=== PATIENT | female | born 1960 | race Caucasian/White ===

== ENCOUNTER → 2016-09-02 | Outpatient (CLI) | payer MEDICARE, OTHER ==
[~2016-09-02] MED LIST: BUPROPION XL150 MG PO; COREG PO; EPIPEN JR0.15 MG/01; FLUOXETINE HCL40 M1 PO; HYDROCHLOROTHIA25 MG PO; NEXIUM 24HR22.3 MG; PREMARIN
--- NOTE | ~2016-09-02 | CT4 ---
[facility] A Service [facility] RADIOLOGY TEXT RESULTS PATIENT: CORINA JOHN LOCATION: [facility] : 56 UNIT #: [id number] AGE: [address]: Brigida Lundberg APRN SEX: F ORDER DR: [id number] [place] [id number] MR#: [id number] Acc #: [id number] NAME: CORINA JHON : 1960 SEX: F STUDY DATE/TIME: 09/02/2016 13:00 UNIT: [facility] ROOM: STUDY DESCRIPTION: CT Abd and Pelv Wo Cont Attending Physician: Brigida Lundberg A.P.R.N. Referring Physician: Brigida Lundberg A.P.R.N. Ordering Physician: Brigida Lundberg A.P.R.N. Primary Care Physician: Brigida Lundberg A.P.R.N. MEDICAL IMAGING REPORT This report is preliminary unless electronic signature is present. EXAM CT abdomen and pelvis, without contrast. HISTORY Bilateral flank pain since yesterday. TECHNIQUE Unenhanced CT of the abdomen and pelvis. This CT exam was performed with one or more of the following radiation dose reduction techniques: automatic exposure control, adjustment of mA and/or kV according to patient size, and iterative reconstruction. COMPARISON None FINDINGS The included lung bases are clear. The liver, spleen, kidneys, adrenal glands, pancreas have an unremarkable unenhanced appearance. Previous cholecystectomy. The bowel loops are nondilated. There is moderate colonic stool burden. No radiodense urinary system calculus. PELVIS WITHOUT CONTRAST: No radiodense bladder calculus. Previous hysterectomy. No pelvic mass. No aggressive-appearing bone lesion. IMPRESSION 1. No acute findings. Specifically, no radiodense urinary system calculus or hydronephrosis. 2. Moderate colonic stool burden. [facility] A Service of [facility] RADIOLOGY TEXT RESULTS PATIENT: CORINA JOHN LOCATION: [facility] : 56 UNIT #: [id number] AGE: [address]: Brigida Lundberg APRN SEX: F ORDER DR: Dictated by... Miles Galaviz M.D. THIS IS AN ELECTRONICALLY VERIFIED REPORT Miles Galaviz M.D. at 09/02/2016 5:05 PM TORI/hsahla TD: 09/02/2016 15:51 JOB #: [id number] MEDICAL IMAGING REPORT Page 1 of 1
== END | disposition home or self-care (01) ==
LOC: SCT 12:30
DX: R30.9 Painful micturition, unspecified (principal); R10.9 Unspecified abdominal pain
CPT/HCPCS: 74176

== ENCOUNTER 2016-11-23 11:38 | Emergency (ER) | payer MEDICARE, OTHER ==
[2016-11-23] MEDS ORDERED: PREMARIN (11:49)
[2016-11-23] MEDS ORDERED: FLUOXETINE HCL40 M1 PO (11:49)
[2016-11-23] MEDS ORDERED: HYDROCHLOROTHIA25 MG PO (11:50)
[2016-11-23] MEDS ORDERED: BUPROPION XL150 MG PO (11:50)
[2016-11-23] MEDS ORDERED: EPIPEN JR0.15 MG/01 (11:50)
[2016-11-23] MEDS ORDERED: NEXIUM 24HR22.3 MG (11:50)
[2016-11-23] MEDS ORDERED: COREG PO (11:51)
[2016-11-23 12:39] LABS: URINE SOURCE CLEAN CATCH
[2016-11-23 12:43] LABS: URINE APPEARANCE CLEAR; URINE BILIRUBIN NEG (NEG); URINE BLOOD NEG (NEG); URINE COLOR YELLOW; URINE GLUCOSE NEG (NORM); URINE KETONE NEG (NEG); URINE LEUKOCYTE ESTERASE NEG (NEG); URINE NITRATE NEG (NEG); URINE PH 5.5 (5-8); URINE PROTEIN NEG (NEG); URINE SPECIFIC GRAVITY 1.015 (1.003-1.035); URINE UROBILINOGEN 0.2 MG/DL (NORM)
[2016-11-23 12:44] LABS: MICRO INDICATED? NO
[2016-11-23 12:46] LABS: BASOPHIL# 0.1 X10e3 (0-0.3); BASOPHIL% 1.1 % (0-2.5); EOSINOPHIL# 0.3 X10e3 (0-0.7); EOSINOPHIL% 3.8 % (0.0-7.0); HEMATOCRIT 52.2 % (35.0-45.0); HEMOGLOBIN 17.8 gm/dL (12.0-16.0); LYMPHOCYTE# 1.3 X10e3 (1.0-3.5); LYMPHOCYTE% 18.4 % (17.0-45.0); MEAN CELL VOLUME 88.8 FL (83-96); MEAN CORPUSCULAR HEMOGLOBIN 30.3 PG (28-34); MEAN CORPUSCULAR HGB CONC 34.2 g/dL (30-36); MEAN PLATELET VOLUME 8.4 FL (6.5-11.5); MONOCYTE# 0.8 X10e3 (0-1.0); MONOCYTE% 10.6 % (3.0-12.0); NEUTROPHIL# 4.7 X10e3 (1.5-7.1); NEUTROPHIL% 66.1 % (40-75); PLATELET COUNT 274 X10e3 (140-420); RED BLOOD COUNT 5.87 X10e (3.90-5.30); RED CELL DISTRIBUTION WIDTH 13.4 % (11.0-15.5); WHITE BLOOD COUNT 7.2 X10e3 (4.0-10.5)
[2016-11-23 12:48] LABS: DIFF IND NO
[2016-11-23 12:52] LABS: AMPHETAMINE NEG (NEG); BARBITURATES NEG (NEG); BENZODIAZEPINES NEG (NEG); COCAINE NEG (NEG); MARIJUANA NEG (NEG); OPIATES NEG (NEG); TRICYCLIC ANTIDEPRESSANTS NEG (NEG); U METHADONE NEG (NEG)
[2016-11-23 13:02] LABS: ALBUMIN SERUM 5.4 g/dL (3.5-5.0); ALKALINE PHOSPHATASE 67 U/L (32-92); ALT (SGPT) 22 U/L (10-40); AMYLASE 22 U/L (0-46); AST (SGOT) 21 U/L (10-42); BILIRUBIN,TOTAL 0.6 mg/dL (0.2-2.0); BLOOD UREA NITROGEN 15 mg/dL (9-23); CALCIUM SERUM 10.2 mg/dL (8.4-10.2); CARBON DIOXIDE 29 mmol/L (22-31); CHLORIDE 98 mmol/L (100-111); GLOM FILT RATE Estimated 62.1 mL/min (>60); GLUCOSE FASTING 81 mg/dL (70-110); LIPASE 23 U/L (22-51); POTASSIUM 3.6 mmol/L (3.5-5.1); PROTEIN TOTAL SERUM 9.4 g/dL (6.0-8.3); SODIUM 137 mmol/L (135-145)
[2016-11-23 13:09] LABS: BILIRUBIN, DIRECT <0.1 mg/dL (0.0-0.2); BILIRUBIN,INDIRECT 0.5 mg/dL (0.0-0.9)
== END 2016-11-23 13:26 | disposition home or self-care (01) ==
LOC: SED 11:38
PROVIDERS: Emergency Medicine
DX: R10.84 Generalized abdominal pain (principal); Z90.710 Acquired absence of both cervix and uterus; Z90.49 Acquired absence of other specified parts of digestive tract; Z79.899 Other long term (current) drug therapy
CPT/HCPCS: 36415; 80048; 80076; 80307; 81003; 82150; 83690; 85025; 96374; 96375; 99284; C9113; J2550